=== PATIENT | male | born 1950 | race Caucasian/White ===

== ENCOUNTER → 2023-04-19 07:45 | Outpatient (BNVA) | payer OTHER, SELFPAY | PROVIDERS: Family Provider Internal Medicine Cardiovascular Disease; PCP Internal Medicine Cardiovascular Disease; Referring Provider Family Medicine; Visit Provider Specialist | DX: G25.0 Essential tremor | CPT/HCPCS: 99204; 99205 ==

== ENCOUNTER 2023-05-17 12:25 | Outpatient (CLI) | payer OTHER, SELFPAY ==
--- NOTE | 2023-05-17 13:00 | MR_ITS ---
WS: [id number] MRI HEAD WITHOUT CONTRAST TECHNIQUE: Sagittal T1, T2 axial, T2 axial FLAIR, axial and coronal T1 images, axial susceptibility w eighted imaging, axial diffusion weighted images, and coronal T2 images were obtained. CLINICAL INFORMATION: R25.1 - Tremor, unspecified COMPARISON: MRI 2018 FINDINGS: No evidence of restricted diffusion to suggest acute ischemia. Ventricular system and basal cisterns are patent. Advanced small vessel changes. Moderate parenchymal volume loss. Evidence of chronic infa rct with encephalomalacia and gliosis in the RIGHT frontal and parietal lobes and parasagittal occipi hermes lobe. Chronic lacunar infarcts in the RIGHT greater than LEFT cerebellum. Normal vascular flow vo ids at the skull base. No extra-axial fluid collections. Mild mucosal thickening in the paranasal sin uses and frontal sinuses. Mastoid air cells are well aerated. No hemosiderin on the susceptibly weighted images. Moderate symmetric atrophy temporal lobes and sonya ocampal formations. IMPRESSION: 1. No evidence of restricted diffusion to suggest acute ischemia. 2. Similar-appearing chronic infarcts with encephalomalacia and gliosis in the RIGHT frontal, RIGHT greater than LEFT parietal, and LEFT posterior temporal and parasagittal occipital lobes with encepha lomalacia and gliosis. 3. Chronic lacunar infarcts in the RIGHT greater than LEFT cerebellum. 4. No hemosiderin on susceptibility-weighted images.
== END 2023-05-17 12:26 | disposition home or self-care (01) ==
PROVIDERS: Family Provider Internal Medicine Cardiovascular Disease; PCP Internal Medicine Cardiovascular Disease; Visit Provider Specialist
DX: R25.1 Tremor, unspecified (principal); Z86.73 Personal history of transient ischemic attack (TIA), and cerebral infarction without residual deficits; G93.89 Other specified disorders of brain
CPT/HCPCS: 70551

== ENCOUNTER 2023-12-15 22:55 | Emergency (ER) | payer OTHER, SELFPAY ==
[2023-12-15 22:58] VITALS: BP 122/80; PULSE 53; RESP 18; TEMP 36.6; O2SAT 95; BMI 26.6
[2023-12-15 23:03] VITALS: BP 122/80; PULSE 54; RESP 16; O2SAT 96
--- NOTE | 2023-12-15 23:27 | CTR_ITS ---
PROCEDURE INFORMATION: Exam: CT Abdomen And Pelvis With Contrast Exam date and time: 12/16/2023 1:00 AM Age: 73 years old Clinical indication: Abdominal pain; Prior surgery; Surgery date: 6+ months; Surgery type: Gb; Additional info: Llq abd pain, n/v known hernia TECHNIQUE: Imaging protocol: Computed tomography of the abdomen and pelvis with contrast. Radiation optimization: All CT scans at this facility use at least one of these dose optimization techniques: automated exposure control; mA and/or kV adjustment per patient size (includes targeted exams where dose is matched to clinical indication); or iterative reconstruction. Contrast material: OMNI 350; Contrast volume: 100 ml; Contrast route: INTRAVENOUS (IV); COMPARISON: CT abdomen pelvis w con* [id number] 11/26/2017 11:55 AM RADIATION DOSE METRICS: Total DLP (mGy-cm): 456.7 FINDINGS: Diaphragm: Small residual hiatal hernia. Liver: Normal. No mass. Gallbladder and bile ducts: Status post cholecystectomy. Pancreas: Normal. No ductal dilation. Spleen: Normal. No splenomegaly. Adrenal glands: Normal. No mass. Kidneys and ureters: There are hypoattenuation cystic lesion seen within the kidneys bilaterally, largest seen on the left anteriorly measuring 3.5 cm. Stomach and bowel: Diverticula are seen scattered in the colon. There are no inflammatory changes present to suggest diverticulitis. Appendix: Status post appendectomy. Intraperitoneal space: Unremarkable. No free air. No significant fluid collection. Vasculature: Calcifications are seen in the abdominal aorta, iliac arteries and femoral arteries bilaterally. There is origin occlusion of the left superficial femoral artery. A stent is present within the left common iliac artery. Lymph nodes: Unremarkable. No enlarged lymph nodes. Urinary bladder: Unremarkable as visualized. Reproductive: Prostate gland is mildly prominent measuring 4.4 x 3.7 x 5.3 cm. Bones/joints: Severe loss of disc height and vacuum disc phenomenon is seen at L5-S1 compatible with degenerative disc disease. Soft tissues: There is left inguinal hernia that contains a knuckle of nonobstructed and non incarcerated small bowel. CT/CT abdomen pelvis w con* [id number] IMPRESSION: 1. 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 2. Left inguinal hernia containing a knuckle of nonobstructed and non incarcerated small bowel. 3. Diverticulosis 4. Small residual hiatal hernia 5. Simple bilateral renal cysts, the largest seen on the left measuring 3.5 cm. No further workup needed. COMMENTS: Consistent with the [employer]'s Incidental Findings Committee white paper (J Am Lauryn Radiol 2018): Any incidental renal lesion less than 1 cm or classified as too small to characterize, or any incidental cystic renal lesion characterized as simple-appearing, is likely benign. No follow-up imaging is recommended for these lesions per consensus recommendations based on imaging criteria.
[2023-12-15 23:30] VITALS: BP 124/70; PULSE 50; RESP 16; O2SAT 94
--- NOTE | 2023-12-15 23:32 | ED_ITS ---
HPI - Abdominal Pain 2 General: Chief Complaint: Abdominal Pain Stated Complaint: ABD PAIN/LEG PAIN Time Seen by Provider: 12/15/23 23:23 History of Present Illness: Patient presents to the ER by EMS with complaints of left lower quadrant abdominal pain radiating down his leg. Patient said this pain from his hernia region that he is going to have surgery on tomorrow but radiated down his leg to the point that he felt pain all the way down to his toes. Patient is never had pain like this before from his hernia. Patient does have a history of a blood clot with a stent in his lower extremity and is currently off of his Plavix for 8 days for the hernia surgery planned tomorrow. Review of Systems 2 General: Reports: 10 or more systems reviewed and unremarkable except in HPI and below Physical Exam 2 Const: COMMON NORMALS: no acute distress, average body habitus, patient oriented x3, no limitations, healthy appearing, alert and well nourished HENMT: COMMON NORMALS: normocephalic, atraumatic, hearing grossly normal bilaterally, external ears normal, Normal external nose present, moist oral mucous membranes and oropharynx normal HEAD & SCALP: normocephalic and atraumatic NOSE: Normal external nose present EXTERNAL EAR: Yes external ears normal Neck/C-Spine: COMMON NORMALS: no JVD Chest: COMMONS NORMALS: normal inspection of the chest and normal palpation of entire chest wall Resp: COMMON NORMALS: normal respiratory effort, No retractions, No use of accessory muscles and clear to auscultation bilaterally AUSCULTATION: clear to auscultation bilaterally Cardio: COMMON NORMALS: no JVD, regular rate, regular rhythm, S1 normal heart sound present, S2 normal heart sound present, No gallops present (Cardio), No clicks present (Cardio), No murmurs present (Cardio) and No rub (Cardio) R ATE: regular rate RHYTHM: regular rhythm HEART SOUNDS: S1 normal heart sound present and S2 normal heart sound present GI: COMMON NORMALS: Normal to inspection, nondistended, normoactive bowel sounds present, Soft to palpation, No hepatosplenomegaly present and no masses; negative for non-tender (Tender to palpate left lower quadrant) PALPATION: Y es Soft to palpation and Yes No hepatosplenomegaly present Extremity: NARRATIVE EXTREMITY EXAM: Bilateral lower extremities pink warm and dry with good pulses present. Neuro: COMMON NORMALS: patient oriented x3 SENSORIUM/ORIENTATION: Yes alert Course 2 Vital Signs: Vital signs: Vital Signs Temperature 98 F 12/15/23 22:58 Pulse Rate 63 12/16/23 02:00 Respiratory Rate 16 12/16/23 02:00 Blood Pressure 145/93 12/16/23 02:00 Pulse Oximetry 97 12/16/23 02:00 Oxygen Delivery Me thod Room Air 12/16/23 02:00 MDM - Abdominal Pain Medical Decision Making Lab work was obtained included CBC CMP and lipase all of which was essentially normal. Abdomen pelvis CT scan showed occlusion of the left superficial femoral artery, left inguinal hernia is nonobstructed and nonincarcerated, these results was discussed with the patient. Patient has surgery planned for the morning. Patient had his femoral stent placed down in [place], patient was unaware of what arteries were occluded then. Patient not want to do anything about this artery now because it is unknown where this is a new occlusion or and old occlusion. This was explained this is very high risk specially if this is new. Patient will go to [place] tomorrow for his hernia surgery and was told to immediately call his vascular surgeon and tell him that he has abdomen pelvis CT scan. This shows an occlusion and have him review the images. Differential Diagnosis Likely abdominal pain; Unlikely acute appendicitis, calculus of kidney, constipation, diverticulitis, endometriosis, gastroenteritis, pancreatitis or small bowel obstruction Medical Records I reviewed the patient's medical records. Lab Data I reviewed the patient's lab results. 12/15/23 23:57 12/15/23 23:57 Labs/Radiology: Radiology Impressions Abdomen/Pelvis CT 12/15/23 23:27 IMPRESSION: 1. 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 2. Left inguinal hernia containing a knuckle of nonobstructed and non incarcerated small bowel. 3. Diverticulosis 4. Small residual hiatal hernia 5. Simple bilateral renal cysts, the largest seen on the left measuring 3.5 cm. No further workup needed. COMMENTS: Consistent with the [employer]'s Incidental Findings Committee white paper (J Am Lauryn Radiol 2018): Any incidental renal lesion less than 1 cm or classified as too small to characterize, or any incidental cystic renal lesion characterized as simple-appearing, is likely benign. No follow-up imaging is recommended for these lesions per consensus recommendations based on imaging criteria. Laboratory Results WBC 6.75 10^3/uL (3.29-11.43) 12/15/23 23:57 RBC 5.22 10^6/uL (3.85-5.65) 12/15/23 23:57 Hgb 15.90 g/dL (11.27-16.99) 12/15/23 23:57 Hct 45.9 % (37-53) 12/15/23 23:57 MCV 87.9 fl (82-101) 12/15/23 23:57 MCH 30.5 pg (27-33) 12/15/23 23:57 MCHC 34.6 g/dL (30-55) 12/15/23 23:57 RDW 12.7 % (12.1-15.1) 12/15/23 23:57 Plt Count 152 10^3/cmm (157-399) L 12/15/23 23:57 MPV 9.6 fL (7.4-10.4) 12/15/23 23:57 Neut % (Auto) 63.4 % 12/15/23 23:57 Lymph % (Auto) 27.3 % 12/15/23 23:57 [place] % (Auto) 5.8 % 12/15/23 23:57 Eos % (Auto) 2.2 % 12/15/23 23:57 Baso % (Auto) 1.0 % 12/15/23 23:57 Neut # (Auto) 4.28 10^3/uL (1.8-7.7) 12/15/23 23:57 Lymph # (Auto) 1.8 10^3/uL (0.8-4.8) 12/15/23 23:57 [place] # (Auto) 0.4 10^3/uL (0.2-0.9) 12/15/23 23:57 Eos # (Auto) 0.2 10^3/uL (0.0-0.8) 12/15/23 23:57 Baso # (Auto) 0.1 10^3/uL (0.0-0.1) 12/15/23 23:57 Nucleated RBC % (auto) 0 % 12/15/23 23:57 Nucleated RBCs # 0.0 /100WBC 12/15/23 23:57 Sodium 138 mmol/L (136-145) 12/15/23 23:57 Potassium 4.4 mmol/L (3.5-5.1) 12/15/23 23:57 Chloride 106 mmol/L (98-107) 12/15/23 23:57 Carbon Dioxide 23 mmol/L (22-29) 12/15/23 23:57 Anion Gap 13.4 (5-19) 12/15/23 23:57 BUN 9 mg/dL (8-23) 12/15/23 23:57 Creatinine 0.8 mg/dL (0.7-1.2) 12/15/23 23:57 GFR Calculation Not Reportable 12/15/23 23:57 Glucose 106 mg/dL (65-115) 12/15/23 23:57 Calculated Osmolality 285 mOsm/kg (285-295) 12/15/23 23:57 Lactic Acid 1.4 mmol/L (0.5-2.2) 12/15/23 23:57 Calcium 9.5 mg/dL (8.5-10.5) 12/15/23 23:57 Total Bilirubin 0.4 mg/dL (0.15-1.2) 12/15/23 23:57 AST 9 U/L (0-40) 12/15/23 23:57 ALT 8 U/L (0-41) 12/15/23 23:57 Alkaline Phosphatase 106 U/L (40-130) 12/15/23 23:57 Total Protein 6.2 g/dL (6.6-8.7) L 12/15/23 23:57 Albumin 3.8 g/dL (3.5-5.2) 12/15/23 23:57 Globulin 2.4 g/dL (1.3-4.6) 12/15/23 23:57 All radiology interpretation(s) finalized by discharge Discharge Plan Discharge Patient Disposition: Home Clinical Impression: Abdominal pain, acute, left lower quadrant, Hernia, inguinal, left, Superficial femoral artery occlusion Condition: Stable Prescriptions: No Action mirtazapine 45 mg tablet 45 mg PO DAILY atorvastatin 40 mg tablet 40 mg PO DAILY valsartan 80 mg tablet 80 mg PO DAILY clopidogrel 75 mg tablet 75 mg PO DAILY primidone 50 mg tablet 50 mg PO BID 30 Days Qty: 60 5RF Rx Instructions: Take 1 in the evening for 7 days and then twice a day for tremor Discharge Orders: Discharge ED (Routine); Ordered 12/16/23 Ordered By: Dusty Hilliard Patient Instructions: Abdominal Pain (ED) Activity Restrictions/Additional Instructions: Your lab work in ER was unremarkable, your imaging showed your hernia is not incarcerated not strangulated. It also showed you have a superficial femoral artery occlusion on your left side. It is unknown if this is acute or chronic. We do not have any images to compare this to. You do have a femoral artery stent and a known blockage somewhere by your recall. Please call your vascular surgeon immediately in the morning and alerted him of this blockage. This could be life-threatening or life altering if this is new. There could be no treatment for it if this is old. But may require treatment if this is new. Coding Level of Care Code ED Disaster Recovery Analyst for Julian Golden
[2023-12-16] VITALS (8 sets, daily range): BP systolic 102–172; BP diastolic 73–97; PULSE 50–83; RESP 16; O2SAT 92–99
[2023-12-16 00:03] LABS: Basophils # 0.1 10^3/uL (0.0-0.1); Eosinophils # 0.2 10^3/uL (0.0-0.8); Eosinophils % 2.2 %; Hematocrit 45.9 % (37-53); Lymphocytes # 1.8 10^3/uL (0.8-4.8); Lymphocytes % 27.3 %; Mean Corpuscular HGB Conc 34.6 g/dL (30-55); Mean Corpuscular Hemoglobin 30.5 pg (27-33); Mean Corpuscular Volume 87.9 fl (82-101); Mean Platelet Volume 9.6 fL (7.4-10.4); Monocytes # 0.4 10^3/uL (0.2-0.9); Monocytes % 5.8 %; Neutrophils # 4.28 10^3/uL (1.8-7.7); Neutrophils % 63.4 %; Nucleated Red Blood Cells % 0 %; Platelet Count 152 10^3/cmm (157-399); Red Blood Count 5.22 10^6/uL (3.85-5.65); Red Cell Distribution Width 12.7 % (12.1-15.1); White Blood Count 6.75 10^3/uL (3.29-11.43)
[2023-12-16 00:26] LABS: Alanine Aminotransferase 8 U/L (0-41); Albumin Level 3.8 g/dL (3.5-5.2); Alkaline Phosphatase 106 U/L (40-130); Anion Gap 13.4 (5-19); Aspartate Amino Transferase 9 U/L (0-40); Blood Urea Nitrogen 9 mg/dL (8-23); Calcium 9.5 mg/dL (8.5-10.5); Carbon Dioxide 23 mmol/L (22-29); Chloride 106 mmol/L (98-107); Creatinine Clr Calc Pharmacy 89.9381; Globulin 2.4 g/dL (1.3-4.6); Glucose 106 mg/dL (65-115); Osmolality Calculated 285 mOsm/kg (285-295); Potassium 4.4 mmol/L (3.5-5.1); Sodium 138 mmol/L (136-145); Total Bilirubin 0.4 mg/dL (0.15-1.2); Total Protein 6.2 g/dL (6.6-8.7)
[2023-12-16 00:27] LABS: Lactic Sepsis W/Reflex 1.4 mmol/L (0.5-2.2)
[2023-12-16] MEDS: iohexol 350 mg/mL 500 mL Btl (per mL) IV (01:03)
== END 2023-12-16 04:22 | disposition home or self-care (01) ==
PROVIDERS: Emergency Provider Emergency Medicine
DX: R10.32 Left lower quadrant pain (principal); K40.90 Unilateral inguinal hernia, without obstruction or gangrene, not specified as recurrent; I77.1 Stricture of artery; Z79.02 Long term (current) use of antithrombotics/antiplatelets
CPT/HCPCS: 74177; 80053; 83605; 85025; 99285; Q9967

== ENCOUNTER 2023-12-19 09:06 | Emergency (ER) | payer OTHER, SELFPAY ==
[2023-12-19 09:09] VITALS: BP 187/91; PULSE 63; RESP 16; TEMP 37.1; O2SAT 97; BMI 23.6
--- NOTE | 2023-12-19 09:30 | USR_ITS ---
PROCEDURE INFORMATION: Exam: US Duplex Left Lower Extremity Arteries Or Arterial Bypass Grafts Exam date and time: 12/19/2023 10:10 AM Age: 73 years old Clinical indication: Pain; Leg, lower; Left; Prior surgery; Surgery date: 1-6 months; Surgery type: Stents in illiacs; Additional info: Coolness, pain; HX of stent/occulsion TECHNIQUE: Imaging protocol: Left Real-time duplex scan of the arteries or arterial bypass grafts of the left lower extremity with 2-D tompkins scale, color Doppler flow and spectral waveform analysis. Images documented and saved. COMPARISON: CT abdomen pelvis w con* [id number] 12/16/2023 1:00 AM FINDINGS: Left common femoral artery: No occlusion or significant stenosis. Normal waveform. Left superficial femoral artery: Occluded. Left popliteal artery: Occluded. Left calf/foot arteries: Minimal blood flow. US/CV arterial duplex [facility] [id number] IMPRESSION: Extensive occlusion beginning in the left SFA.
--- NOTE | 2023-12-19 09:30 | ED_ITS ---
HPI - Extremity Problem 2 General: Chief complaint: Extremity Problem,Nontraumatic Stated complaint: Left lower leg pain Time Seen by Provider: 12/19/23 09:10 Source: patient and EMS Mode of arrival: EMS Limitations: no limitations History of Present Illness: Patient is a nice 73-year-old male who presents to ED today with a complaint of left lower leg pain over the past 2 weeks or so. Patient states he does have a history of an arterial occlusion to the leg and does have a stent to his left common iliac artery. He states that was placed approximately 2 to 3 years ago at [facility] however after contacting [facility], they are stating they do not have any records of this. Reportedly done by a Dr. Correa who is part of an outpatient vascular surgical group. Patient states his leg feels cold and is having significant discomfort even at rest. He states pain is significantly worse with walking and states his leg will turn blue/purple when he gets up and walks. Patient was seen here in our ED on 12/[address] scan of his abdomen and pelvis for complaints of a hernia. CT scan at the time showed a left superficial femoral artery occlusion. Pulses were reportedly palpable at that time and extremities were pink and warm. Patient states he had a hernia repair surgery scheduled for the following day which he underwent in [place] on 12/15. MD Complaint: extremity pain and cold extremity Onset (ago): week(s) (2 weeks ago) Pain Consistency: constant and other (worsening) Location: left and lower extremity Radiation: none Relieving factors: nothing Exacerbating factors: walking Associated symptoms: Deny chest pain or fever(s) Context: recent surgery/procedure and other (hx of arterial occlusion with stent) Review of Systems 2 Const: Denies: fever(s), chills, body aches, fatigue or malaise Card: Denies: chest pain Resp: Denies: dyspnea GI: Reports: abdominal pain (states abdomen is healing well from recent hernia surgery); Denies: nausea, vomiting, diarrhea or change in bowel habits : Denies: flank pain, difficulty urinating, dysuria, urinary frequency, urinary urgency or urinary hesitancy Musc: Reports: extremity pain; Denies: neck pain, back pain, extremity swelling, joint pain, joint swelling or limited range of motion Neuro: Reports: sensory changes; Denies: headache(s) or weakness in extremities Physical Exam 2 Const: COMMON NORMALS: no acute distress, average body habitus, patient oriented x3, no limitations, alert and well nourished GENERAL APPEARANCE: c ooperative ORIENTATION/CONSCIOUSNESS: Yes awake, Yes oriented to person, Yes oriented to place and Yes oriented to time Resp: COMMON NORMALS: normal respiratory effort and clear to auscultation bilaterally AUSCULTATION: clear to auscultation bilaterally Cardio: COMMON NORMALS: regular rate and regular rhythm RATE: regular rate RHYTHM: regular rhythm Extremity: COMMON NORMALS: full ROM, no joint enlargement, no calf tenderness and no pedal edema GENERAL: Yes normal exam except as noted OTHER: L LE is cooler to touch than R; there is delayed cap refill, pain at rest, and I cannot palpate DP/PT pulses Neuro: COMMON NORMALS: patient oriented x3, moves all extremities and no focal motor deficits SENSORIUM/ORIENTATION: Yes alert, Yes oriented to person, Yes oriented to place and Yes oriented to time Course 2 Consultations: Consultation #1: [facility], will have vascular consult upon arrival Vital Signs: Vital signs: Vital Signs Temperature 98.7 F 12/19/23 09:09 Pulse Rate 61 12/19/23 12:18 Respiratory Rate 16 12/19/23 09:09 Blood Pressure 175/81 12/19/23 12:18 Pulse Oximetry 99 12/19/23 12:18 Oxygen Delivery Me thod Room Air 12/19/23 09:09 MDM - Extremity (Nontraumatic) Medical Decision Making Patient is a nice 73-year-old male here for left lower extremity pain and coolness. On exam he has a cool foot, delayed cap refill, and nonpalpable DP/PT pulses. Arterial ultrasound showing an occluded left superficial femoral artery as well as an occluded popliteal artery. Per dairy technologist he also did not get flow in his peroneal and posterior tibial arteries. He states there was trickle flow to his dorsalis pedis with an MARCIE of 0.23. Patient will require transfer to vascular surgery for limb ischemia. He has been started on heparin. I have spoken to [facility] and he will be a direct admit there with vascular consult upon arrival. Medical Records I reviewed the patient's medical records. Lab Data I reviewed the patient's lab results. 12/19/23 10:03 12/19/23 10:03 Radiology Impressions Duplex Scan Lower Extremity Artery 12/19/23 09:30 IMPRESSION: Extensive occlusion beginning in the left SFA. Laboratory Results WBC 6.19 10^3/uL (3.29-11.43) 12/19/23 10:03 RBC 5.17 10^6/uL (3.85-5.65) 12/19/23 10:03 Hgb 15.40 g/dL (11.27-16.99) 12/19/23 10:03 Hct 46.1 % (37-53) 12/19/23 10:03 MCV 89.2 fl (82-101) 12/19/23 10:03 MCH 29.8 pg (27-33) 12/19/23 10:03 MCHC 33.4 g/dL (30-55) 12/19/23 10:03 RDW 12.7 % (12.1-15.1) 12/19/23 10:03 Plt Count 146 10^3/cmm (157-399) L 12/19/23 10:03 MPV 9.6 fL (7.4-10.4) 12/19/23 10:03 Neut % (Auto) 74.0 % 12/19/23 10:03 Lymph % (Auto) 18.1 % 12/19/23 10:03 [place] % (Auto) 4.7 % 12/19/23 10:03 Eos % (Auto) 2.1 % 12/19/23 10:03 Baso % (Auto) 0.8 % 12/19/23 10:03 Neut # (Auto) 4.58 10^3/uL (1.8-7.7) 12/19/23 10:03 Lymph # (Auto) 1.1 10^3/uL (0.8-4.8) 12/19/23 10:03 [place] # (Auto) 0.3 10^3/uL (0.2-0.9) 12/19/23 10:03 Eos # (Auto) 0.1 10^3/uL (0.0-0.8) 12/19/23 10:03 Baso # (Auto) 0.1 10^3/uL (0.0-0.1) 12/19/23 10:03 Nucleated RBC % (auto) 0 % 12/19/23 10:03 Nucleated RBCs # 0.0 /100WBC 12/19/23 10:03 Sodium 137 mmol/L (136-145) 12/19/23 10:03 Potassium 4.4 mmol/L (3.5-5.1) 12/19/23 10:03 Chloride 107 mmol/L (98-107) 12/19/23 10:03 Carbon Dioxide 23 mmol/L (22-29) 12/19/23 10:03 Anion Gap 11.4 (5-19) 12/19/23 10:03 BUN 6 mg/dL (8-23) L 12/19/23 10:03 Creatinine 0.8 mg/dL (0.7-1.2) 12/19/23 10:03 GFR Calculation Not Reportable 12/19/23 10:03 Glucose 90 mg/dL (65-115) 12/19/23 10:03 Calculated Osmolality 281 mOsm/kg (285-295) L 12/19/23 10:03 Calcium 9.2 mg/dL (8.5-10.5) 12/19/23 10:03 Total Bilirubin 0.5 mg/dL (0.15-1.2) 12/19/23 10:03 AST 9 U/L (0-40) 12/19/23 10:03 ALT 7 U/L (0-41) 12/19/23 10:03 Alkaline Phosphatase 115 U/L (40-130) 12/19/23 10:03 Total Protein 6.1 g/dL (6.6-8.7) L 12/19/23 10:03 Albumin 3.6 g/dL (3.5-5.2) 12/19/23 10:03 Globulin 2.5 g/dL (1.3-4.6) 12/19/23 10:03 All radiology interpretation(s) finalized by discharge Discharge Plan Discharge Patient Disposition: Xfer Short-Term Hosp Clinical Impression: Acute lower extremity ischemia Condition: Stable Coding Level of Care Code ED Computing Consultant for Julian Golden
[2023-12-19 10:15] LABS: Basophils # 0.1 10^3/uL (0.0-0.1); Basophils % 0.8 %; Eosinophils # 0.1 10^3/uL (0.0-0.8); Eosinophils % 2.1 %; Hematocrit 46.1 % (37-53); Lymphocytes # 1.1 10^3/uL (0.8-4.8); Lymphocytes % 18.1 %; Mean Corpuscular HGB Conc 33.4 g/dL (30-55); Mean Corpuscular Hemoglobin 29.8 pg (27-33); Mean Corpuscular Volume 89.2 fl (82-101); Mean Platelet Volume 9.6 fL (7.4-10.4); Monocytes # 0.3 10^3/uL (0.2-0.9); Monocytes % 4.7 %; Neutrophils # 4.58 10^3/uL (1.8-7.7); Nucleated Red Blood Cells % 0 %; Platelet Count 146 10^3/cmm (157-399); Red Blood Count 5.17 10^6/uL (3.85-5.65); Red Cell Distribution Width 12.7 % (12.1-15.1); White Blood Count 6.19 10^3/uL (3.29-11.43)
[2023-12-19 10:37] LABS: Alanine Aminotransferase 7 U/L (0-41); Albumin Level 3.6 g/dL (3.5-5.2); Alkaline Phosphatase 115 U/L (40-130); Anion Gap 11.4 (5-19); Aspartate Amino Transferase 9 U/L (0-40); Blood Urea Nitrogen 6 mg/dL (8-23); Calcium 9.2 mg/dL (8.5-10.5); Carbon Dioxide 23 mmol/L (22-29); Chloride 107 mmol/L (98-107); Creatinine Clr Calc Pharmacy 85.5911; Globulin 2.5 g/dL (1.3-4.6); Glucose 90 mg/dL (65-115); Osmolality Calculated 281 mOsm/kg (285-295); Potassium 4.4 mmol/L (3.5-5.1); Sodium 137 mmol/L (136-145); Total Bilirubin 0.5 mg/dL (0.15-1.2); Total Protein 6.1 g/dL (6.6-8.7)
[2023-12-19] MEDS: heparin 5,000 unit/mL INJ 1 mL IV (11:10)
[2023-12-19 11:17] VITALS: BP 169/92; PULSE 91; O2SAT 96
[2023-12-19] MEDS: heparin drip 25,000 UNIT/500 ML PREMIX 20 UNIT IV (11:17)
[2023-12-19 12:00] VITALS: BP 169/92; O2SAT 100
[2023-12-19 12:18] VITALS: BP 175/81; PULSE 61; O2SAT 99
[2023-12-19 13:55] VITALS: BP 127/74; O2SAT 96
== END 2023-12-19 17:19 | disposition short-term general hospital (02) ==
PROVIDERS: Emergency Provider Physician Assistant
DX: I99.8 Other disorder of circulatory system (principal)
CPT/HCPCS: 36415; 80053; 85025; 93926; 96374; 99284; J1644

== ENCOUNTER 2024-08-02 03:25 | Emergency (ER) | payer OTHER, SELFPAY ==
[2024-08-02] VITALS (8 sets, daily range): BP systolic 121–146; BP diastolic 70–82; PULSE 70–94; RESP 14–24; TEMP 37.1; O2SAT 90–97; BMI 23.6
--- NOTE | 2024-08-02 03:37 | XRR_ITS ---
PROCEDURE INFORMATION: Exam: XR Chest Exam date and time: 08/02/2024 3:51 AM Age: 74 years old Clinical indication: Shortness of breath; Prior surgery; Surgery date: <1 month; Surgery type: Pacemaker; Additional info: Weakness TECHNIQUE: Imaging protocol: Radiologic exam of the chest. Views: 1 view. COMPARISON: CR XR chest 1V [id number] 03/03/2018 3:08 PM FINDINGS: Tubes, catheters and devices: A cardiac pacing device is again seen projecting over the left chest. Electronic device projects over the left chest. Lungs: Patchy airspace opacity noted in the left lower lung. The right lung is clear. Pleural spaces: Unremarkable. No pleural effusion. No pneumothorax. Heart/Mediastinum: Stable cardiomediastinal silhouette. Bones/joints: Unremarkable. XR/XR chest 1V portable [id number] IMPRESSION: Patchy airspace opacity in the left lower lung, which may represent atelectasis or pneumonia in the adequate clinical setting.
--- NOTE | 2024-08-02 03:38 | ECG_ITS ---
[employer] [facility] Test Date: 2024-08-02 Pat Name: Moe Patel Department: Room: Gender: Male Staffing Recruiter: : 1950 Requested By: Ashia Brooks Order Number: [id number] Laird MD: Amos Balderas M.D. Measurements Intervals [place] Rate: 87 P: 87 MT: 149 QRS: 40 QRSD: 114 T: 57 QT: 340 QTc: 409 Interpretive Statements SINUS RHYTHM WITH OCCASIONAL ECTOPIC PREMATURE COMPLEXES MODERATE INTRAVENTRICULAR CONDUCTION DELAY [110+ ms QRS DURATION] Compared to ECG 03/03/2018 14:51:18 Sinus bradycardia no longer present Electronically Signed On 08-03-2024 18:35:20 CONCRETE POURING SUPERVISOR by Amos Balderas M.D. [email or web address]
--- NOTE | 2024-08-02 03:56 | W.ED.WEAKNES ---
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 He says he has not been sleeping. He says he is felt short of breath and weak for about 5 days now. Pacemaker was placed fairly recently. He reports fevers. No focal motor deficits. No chest pain. No abdominal pain. No nausea or vomiting. Review of Systems Narrative: Constitutional symptoms: Negative except as documented in HPI. Skin symptoms: Negative except as documented in HPI. Eye symptoms: Negative except as documented in HPI. ENMT symptoms: Negative except as documented in HPI. Respiratory symptoms: Negative except as documented in HPI. Cardiovascular symptoms: Negative except as documented in HPI. Gastrointestinal symptoms: Negative except as documented in HPI. Genitourinary symptoms: Negative except as documented in HPI. Musculoskeletal symptoms: Negative except as documented in HPI. Neurologic symptoms: Negative except as documented in HPI. Psychiatric symptoms: Negative except as documented in HPI. Endocrine symptoms: Negative except as documented in HPI. Physical Exam Narrative: EXAM NARRATIVE: General: Alert, no acute distress. Skin: Warm, dry. Head: Normocephalic, atraumatic. Neck: Supple, trachea midline. Eye: Extraocular movements are intact. Ears, nose, mouth and throat: mucosa moist. Cardiovascular: Regular, Normal peripheral perfusion. Respiratory: Lungs are clear to auscultation, respirations are non-labored, breath sounds are equal, Symmetrical chest wall expansion. Gastrointestinal: Soft, Nontender, Non distended Musculoskeletal: Normal ROM, no deformity. Neurological: Alert and oriented, No focal neurological deficit observed. Psychiatric: Cooperative, appropriate mood & affect. Course Vital Signs: Vital signs: Vital Signs Temperature 98.7 F 08/02/24 03:37 Pulse Rate 74 08/02/24 06:06 Respiratory Rate 20 H 08/02/24 06:06 Blood Pressure 125/71 08/02/24 06:06 Pulse Oximetry 95 08/02/24 06:06 Oxygen Delivery Me thod Room Air 08/02/24 04:00 MDM - Weakness Medical Decision Making Medical decision making: Differential diagnosis for patient presenting with generalized weakness including but not limited to and based on the above HPI, review of systems and physical exam: Sepsis. Dehydration. Renal failure. Electrolyte abnormalities. Anemia. Congestive heart failure. Hypotension. Coronary syndrome. Hepatitis. Cirrhosis. Infections such as pneumonia, urinary tract infection, [place] illness, Cellulitis, Viral infections including influenza and Covid-19. EKG: Time 3:33 AM. Rate 87. Occasional PACs. Normal sinus rhythm, No ST-T changes, normal OK & QRS intervals, This was reviewed and interpreted by myself the ER physician at 3:37 AM Workup: labwork and lab/exam driven imaging ordered to evaluate, rule in and rule out above pathologies. Lab Review: Laboratory results were reviewed and interpreted by myself the emergency room physician. I reviewed the patient's medical record. Reexamination: Lab Data 08/02/24 04:17 08/02/24 04:17 Radiology Impressions Chest X-Ray 08/02/24 03:37 IMPRESSION: Patchy airspace opacity in the left lower lung, which may represent atelectasis or pneumonia in the adequate clinical setting. Chest CT 08/02/24 05:01 IMPRESSION: Rounded opacity at the right lung base. Three-month follow-up chest CT recommended. COMMENTS: The presence of pulmonary emphysema on CT is an independent risk factor for lung cancer. In the absence of a history or active diagnosis of lung cancer, it is recommended that this patient with emphysema be evaluated for enrollment in a low dose CT lung cancer screening program. Laboratory Results WBC 4.64 10^3/uL (3.29-11.43) 08/02/24 04:17 RBC 4.87 10^6/uL (3.85-5.65) 08/02/24 04:17 Hgb 14.40 g/dL (11.27-16.99) 08/02/24 04:17 Hct 42.8 % (37-53) 08/02/24 04:17 MCV 87.9 fl (82-101) 08/02/24 04:17 MCH 29.6 pg (27-33) 08/02/24 04:17 MCHC 33.6 g/dL (30-55) 08/02/24 04:17 RDW 13.0 % (12.1-15.1) 08/02/24 04:17 Plt Count 134 10^3/cmm (157-399) L 08/02/24 04:17 MPV 9.1 fL (7.4-10.4) 08/02/24 04:17 Neut % (Auto) 81.9 % 08/02/24 04:17 Lymph % (Auto) 10.8 % 08/02/24 04:17 [place] % (Auto) 6.3 % 08/02/24 04:17 Eos % (Auto) 0.4 % 08/02/24 04:17 Baso % (Auto) 0.4 % 08/02/24 04:17 Neut # (Auto) 3.80 10^3/uL (1.8-7.7) 08/02/24 04:17 Lymph # (Auto) 0.5 10^3/uL (0.8-4.8) L 08/02/24 04:17 [place] # (Auto) 0.3 10^3/uL (0.2-0.9) 08/02/24 04:17 Eos # (Auto) 0.0 10^3/uL (0.0-0.8) 08/02/24 04:17 Baso # (Auto) 0.0 10^3/uL (0.0-0.1) 08/02/24 04:17 Nucleated RBC % (auto) 0 % 08/02/24 04:17 Nucleated RBCs # 0.0 /100WBC 08/02/24 04:17 Sodium 135 mmol/L (136-145) L 08/02/24 04:17 Potassium 3.7 mmol/L (3.5-5.1) 08/02/24 04:17 Chloride 101 mmol/L (98-107) 08/02/24 04:17 Carbon Dioxide 22 mmol/L (22-29) 08/02/24 04:17 Anion Gap 15.7 (5-19) 08/02/24 04:17 BUN 12 mg/dL (8-23) 08/02/24 04:17 Creatinine 0.8 mg/dL (0.7-1.2) 08/02/24 04:17 GFR Calculation Not Reportable 08/02/24 04:17 Glucose 108 mg/dL (65-115) 08/02/24 04:17 Calculated Osmolality 280 mOsm/kg (285-295) L 08/02/24 04:17 Lactic Acid 1.7 mmol/L (0.5-2.2) 08/02/24 04:17 Calcium 8.9 mg/dL (8.5-10.5) 08/02/24 04:17 Total Bilirubin 0.4 mg/dL (0.15-1.2) 08/02/24 04:17 AST 10 U/L (0-40) 08/02/24 04:17 ALT 6 U/L (0-41) 08/02/24 04:17 Alkaline Phosphatase 110 U/L (40-130) 08/02/24 04:17 Troponin T Baseline 18 ng/L (0-15) H 08/02/24 04:17 Troponin T 120 Minute 18.26 ng/L (0-15) H 08/02/24 06:12 Delta Troponin T 0.26 ABS# (0-10) 08/02/24 06:12 NT-Pro-B Natriuret Pep 232 pg/mL (0-125) H 08/02/24 04:17 Total Protein 6.1 g/dL (6.6-8.7) L 08/02/24 04:17 Albumin 3.7 g/dL (3.5-5.2) 08/02/24 04:17 Globulin 2.4 g/dL (1.3-4.6) 08/02/24 04:17 Urine Color Dark yellow (Yellow) A 08/02/24 06:44 Urine Appearance Clear (CLEAR) 08/02/24 06:44 Urine pH 5.5 (5-7) 08/02/24 06:44 Ur Specific [place] 1.026 (1.005-1.030) 08/02/24 06:44 Urine Protein Trace (Negative) A 08/02/24 06:44 Urine Glucose (UA) Negative (Normal) 08/02/24 06:44 Urine Ketones Negative (Negative) 08/02/24 06:44 Urine Blood Negative (Negative) 08/02/24 06:44 Urine Nitrate Negative (Negative) 08/02/24 06:44 Urine Bilirubin Negative (Negative) 08/02/24 06:44 Urine Urobilinogen 1.0 mg/dL (Negative) 08/02/24 06:44 Ur Leukocyte Esterase Negative (Negative) 08/02/24 06:44 Amorphous Sediment Not Reportable 08/02/24 06:44 Coronavirus (PCR) Negative (Negative) 08/02/24 04:17 Influenza A (PCR) Negative (Negative) 08/02/24 04:17 Influenza Type B (PCR) Negative (Negative) 08/02/24 04:17 RSV (PCR) Positive (Negative) 08/02/24 04:17 All radiology interpretation(s) finalized by discharge Discharge Plan Discharge Patient Disposition: Home Clinical Impression: RSV bronchiolitis, Lung nodule Condition: Stable Prescriptions: No Action mirtazapine 45 mg tablet 45 mg PO DAILY atorvastatin 40 mg tablet 40 mg PO DAILY valsartan 80 mg tablet 80 mg PO DAILY clopidogrel 75 mg tablet 75 mg PO DAILY Discharge Orders: Discharge ED (Routine); Ordered 08/02/24 Ordered By: Kelly Copeland Patient Instructions: Pulmonary Nodules (ED), Opioid Safety, Pain Management, Respiratory Syncytial Virus (RSV) Coding Level of Care Code ED Pigment Making Supervisor for g Fwd Related Data Home Medications Medication Instructions Recorded Confirmed atorvastatin 40 mg tablet 40 mg PO DAILY 04/19/23 12/19/23 clopidogrel 75 mg tablet 75 mg PO DAILY 04/19/23 12/19/23 mirtazapine 45 mg tablet 45 mg PO DAILY 04/19/23 12/19/23 valsartan 80 mg tablet 80 mg PO DAILY 04/19/23 12/19/23 Allergies Allergy/AdvReac Type Severity Reaction Status Date / Time No Known Allergies Allergy Verified 08/02/24 03:41 Documented by User: Kelly Copeland MD 08/02/24 07:20 HPI - Weakness General: Chief complaint: Weakness Stated complaint: WEAKNESS Time Seen by Provider: 08/02/24 03:27 Course Reevaluation(s): Reevaluation #1: Pt signed out to f/u on repeat trop and CT. pt p/w viral URI symptoms, cough sob chills found to have RSV bronchiolitis. work up demonstrates trop stable x 2 , ekg non ischemic, CT shows poss pulm nodule otherwise no PNA, pt reassessed , he feels improved, lungs ctabl, stable VS, pt comfortable going home. Disc results including incidental finding of pulm nodule that will require outpt f/u. pt v/u, stable for dc Vital Signs: Vital signs: Vital Signs Temperature 98.7 F 08/02/24 03:37 Pulse Rate 74 08/02/24 06:06 Respiratory Rate 20 H 08/02/24 06:06 Blood Pressure 125/71 08/02/24 06:06 Pulse Oximetry 95 08/02/24 06:06 Oxygen Delivery Me thod Room Air 08/02/24 04:00 MDM - Weakness Lab Data 08/02/24 04:17 08/02/24 04:17 Radiology Impressions Chest X-Ray 08/02/24 03:37 IMPRESSION: Patchy airspace opacity in the left lower lung, which may represent atelectasis or pneumonia in the adequate clinical setting. Chest CT 08/02/24 05:01 IMPRESSION: Rounded opacity at the right lung base. Three-month follow-up chest CT recommended. COMMENTS: The presence of pulmonary emphysema on CT is an independent risk factor for lung cancer. In the absence of a history or active diagnosis of lung cancer, it is recommended that this patient with emphysema be evaluated for enrollment in a low dose CT lung cancer screening program. Laboratory Results WBC 4.64 10^3/uL (3.29-11.43) 08/02/24 04:17 RBC 4.87 10^6/uL (3.85-5.65) 08/02/24 04:17 Hgb 14.40 g/dL (11.27-16.99) 08/02/24 04:17 Hct 42.8 % (37-53) 08/02/24 04:17 MCV 87.9 fl (82-101) 08/02/24 04:17 MCH 29.6 pg (27-33) 08/02/24 04:17 MCHC 33.6 g/dL (30-55) 08/02/24 04:17 RDW 13.0 % (12.1-15.1) 08/02/24 04:17 Plt Count 134 10^3/cmm (157-399) L 08/02/24 04:17 MPV 9.1 fL (7.4-10.4) 08/02/24 04:17 Neut % (Auto) 81.9 % 08/02/24 04:17 Lymph % (Auto) 10.8 % 08/02/24 04:17 [place] % (Auto) 6.3 % 08/02/24 04:17 Eos % (Auto) 0.4 % 08/02/24 04:17 Baso % (Auto) 0.4 % 08/02/24 04:17 Neut # (Auto) 3.80 10^3/uL (1.8-7.7) 08/02/24 04:17 Lymph # (Auto) 0.5 10^3/uL (0.8-4.8) L 08/02/24 04:17 [place] # (Auto) 0.3 10^3/uL (0.2-0.9) 08/02/24 04:17 Eos # (Auto) 0.0 10^3/uL (0.0-0.8) 08/02/24 04:17 Baso # (Auto) 0.0 10^3/uL (0.0-0.1) 08/02/24 04:17 Nucleated RBC % (auto) 0 % 08/02/24 04:17 Nucleated RBCs # 0.0 /100WBC 08/02/24 04:17 Sodium 135 mmol/L (136-145) L 08/02/24 04:17 Potassium 3.7 mmol/L (3.5-5.1) 08/02/24 04:17 Chloride 101 mmol/L (98-107) 08/02/24 04:17 Carbon Dioxide 22 mmol/L (22-29) 08/02/24 04:17 Anion Gap 15.7 (5-19) 08/02/24 04:17 BUN 12 mg/dL (8-23) 08/02/24 04:17 Creatinine 0.8 mg/dL (0.7-1.2) 08/02/24 04:17 GFR Calculation Not Reportable 08/02/24 04:17 Glucose 108 mg/dL (65-115) 08/02/24 04:17 Calculated Osmolality 280 mOsm/kg (285-295) L 08/02/24 04:17 Lactic Acid 1.7 mmol/L (0.5-2.2) 08/02/24 04:17 Calcium 8.9 mg/dL (8.5-10.5) 08/02/24 04:17 Total Bilirubin 0.4 mg/dL (0.15-1.2) 08/02/24 04:17 AST 10 U/L (0-40) 08/02/24 04:17 ALT 6 U/L (0-41) 08/02/24 04:17 Alkaline Phosphatase 110 U/L (40-130) 08/02/24 04:17 Troponin T Baseline 18 ng/L (0-15) H 08/02/24 04:17 Troponin T 120 Minute 18.26 ng/L (0-15) H 08/02/24 06:12 Delta Troponin T 0.26 ABS# (0-10) 08/02/24 06:12 NT-Pro-B Natriuret Pep 232 pg/mL (0-125) H 08/02/24 04:17 Total Protein 6.1 g/dL (6.6-8.7) L 08/02/24 04:17 Albumin 3.7 g/dL (3.5-5.2) 08/02/24 04:17 Globulin 2.4 g/dL (1.3-4.6) 08/02/24 04:17 Urine Color Dark yellow (Yellow) A 08/02/24 06:44 Urine Appearance Clear (CLEAR) 08/02/24 06:44 Urine pH 5.5 (5-7) 08/02/24 06:44 Ur Specific [place] 1.026 (1.005-1.030) 08/02/24 06:44 Urine Protein Trace (Negative) A 08/02/24 06:44 Urine Glucose (UA) Negative (Normal) 08/02/24 06:44 Urine Ketones Negative (Negative) 08/02/24 06:44 Urine Blood Negative (Negative) 08/02/24 06:44 Urine Nitrate Negative (Negative) 08/02/24 06:44 Urine Bilirubin Negative (Negative) 08/02/24 06:44 Urine Urobilinogen 1.0 mg/dL (Negative) 08/02/24 06:44 Ur Leukocyte Esterase Negative (Negative) 08/02/24 06:44 Amorphous Sediment Not Reportable 08/02/24 06:44 Coronavirus (PCR) Negative (Negative) 08/02/24 04:17 Influenza A (PCR) Negative (Negative) 08/02/24 04:17 Influenza Type B (PCR) Negative (Negative) 08/02/24 04:17 RSV (PCR) Positive (Negative) 08/02/24 04:17 Discharge Plan Discharge Patient Disposition: Home Clinical Impression: RSV bronchiolitis, Lung nodule Condition: Stable Prescriptions: No Action mirtazapine 45 mg tablet 45 mg PO DAILY atorvastatin 40 mg tablet 40 mg PO DAILY valsartan 80 mg tablet 80 mg PO DAILY clopidogrel 75 mg tablet 75 mg PO DAILY Discharge Orders: Discharge ED (Routine); Ordered 08/02/24 Ordered By: Kelly Copeland Patient Instructions: Pulmonary Nodules (ED), Opioid Safety, Pain Management, Respiratory Syncytial Virus (RSV) Coding Level of Care Code ED Pigment Making Supervisor for Chg Fwd Related Data Home Medications Medication Instructions Recorded Confirmed atorvastatin 40 mg tablet 40 mg PO DAILY 04/19/23 12/19/23 clopidogrel 75 mg tablet 75 mg PO DAILY 04/19/23 12/19/23 mirtazapine 45 mg tablet 45 mg PO DAILY 04/19/23 12/19/23 valsartan 80 mg tablet 80 mg PO DAILY 04/19/23 12/19/23 Allergies Allergy/AdvReac Type Severity Reaction Status Date / Time No Known Allergies Allergy Verified 08/02/24 03:41
[2024-08-02 04:26] LABS: Basophils % 0.4 %; Eosinophils % 0.4 %; Hematocrit 42.8 % (37-53); Lymphocytes # 0.5 10^3/uL (0.8-4.8); Lymphocytes % 10.8 %; Mean Corpuscular HGB Conc 33.6 g/dL (30-55); Mean Corpuscular Hemoglobin 29.6 pg (27-33); Mean Corpuscular Volume 87.9 fl (82-101); Mean Platelet Volume 9.1 fL (7.4-10.4); Monocytes # 0.3 10^3/uL (0.2-0.9); Monocytes % 6.3 %; Neutrophils % 81.9 %; Nucleated Red Blood Cells % 0 %; Platelet Count 134 10^3/cmm (157-399); Red Blood Count 4.87 10^6/uL (3.85-5.65); White Blood Count 4.64 10^3/uL (3.29-11.43)
[2024-08-02 04:46] LABS: Lactic Sepsis W/Reflex 1.7 mmol/L (0.5-2.2)
[2024-08-02 04:47] LABS: Troponin(5th) Baseline 18 ng/L (0-15)
[2024-08-02 04:56] LABS: Alanine Aminotransferase 6 U/L (0-41); Albumin Level 3.7 g/dL (3.5-5.2); Alkaline Phosphatase 110 U/L (40-130); Anion Gap 15.7 (5-19); Aspartate Amino Transferase 10 U/L (0-40); Blood Urea Nitrogen 12 mg/dL (8-23); Calcium 8.9 mg/dL (8.5-10.5); Carbon Dioxide 22 mmol/L (22-29); Chloride 101 mmol/L (98-107); Creatinine Clr Calc Pharmacy 84.3507; Globulin 2.4 g/dL (1.3-4.6); Glucose 108 mg/dL (65-115); NT Pro B Type Natriuretic Pept 232 pg/mL (0-125); Osmolality Calculated 280 mOsm/kg (285-295); Potassium 3.7 mmol/L (3.5-5.1); Sodium 135 mmol/L (136-145); Total Bilirubin 0.4 mg/dL (0.15-1.2); Total Protein 6.1 g/dL (6.6-8.7)
--- NOTE | 2024-08-02 05:01 | CTR_ITS ---
PROCEDURE INFORMATION: Exam: CT Chest Without Contrast; Diagnostic Exam date and time: 08/02/2024 5:18 AM Age: 74 years old Clinical indication: Cough and fever; Prior surgery; Surgery date: <1 month; Surgery type: Pacemaker; Additional info: Abnormal chest xray TECHNIQUE: Imaging protocol: Diagnostic computed tomography of the chest without contrast. Radiation optimization: All CT scans at this facility use at least one of these dose optimization techniques: automated exposure control; mA and/or kV adjustment per patient size (includes targeted exams where dose is matched to clinical indication); or iterative reconstruction. COMPARISON: CR (CHEST, ) 08/02/2024 3:51 AM RADIATION DOSE METRICS: Total DLP (mGy-cm): 394.05 FINDINGS: Tubes, catheters and devices: Pacemaker. Lungs: Rather opacity abutting the pleura at the right lung base measures 2.5 cm in size. While it is likely atelectasis or infiltrate in should be followed by repeat CT in 3 months. Mild centrilobular emphysema. Calcified granuloma in the right upper lobe. Pleural spaces: Mild pleural and parenchymal fibrosis in the right apex. The mild opacity at the left lung base seen on routine radiographs is hypoventilatory. Heart: Unremarkable. No cardiomegaly. No pericardial effusion. Coronary arteries: Coronary artery calcifications. Lymph nodes: Calcified central lymph nodes. Vasculature: Unremarkable. No aortic aneurysm. Gallbladder and biliary ducts: Cholecystectomy. Bones/joints: Unremarkable. No acute fracture. Soft tissues: Unremarkable. CT/CT chest wo con [id number] IMPRESSION: Rounded opacity at the right lung base. Three-month follow-up chest CT recommended. COMMENTS: The presence of pulmonary emphysema on CT is an independent risk factor for lung cancer. In the absence of a history or active diagnosis of lung cancer, it is recommended that this patient with emphysema be evaluated for enrollment in a low dose CT lung cancer screening program.
[2024-08-02 05:03] LABS: Covid PCR NEGATIVE (Negative); Influenza A NEGATIVE (Negative); Influenza B NEGATIVE (Negative); Respiratory Syncytial Virus Ce POSITIVE (Negative)
--- NOTE | 2024-08-02 05:38 | ECG_ITS ---
FID3 Test Date: 2024-08-02 Pat Name: Moe Patel Department: Room: Gender: Male Regional Director Of Admissions: : 1950 Requested By: Ashia Brooks Order Number: [id number] Laird MD: Amos Balderas M.D. Measurements Intervals [place] Rate: 76 P: 96 FL: 155 QRS: 36 QRSD: 106 T: 56 QT: 365 QTc: 411 Interpretive Statements SINUS RHYTHM WITH OCCASIONAL VENTRICULAR PREMATURE COMPLEXES Compared to ECG 08/02/2024 03:33:22 Ventricular premature complex(es) now present Intraventricular conduction delay no longer present Electronically Signed On 08-03-2024 18:41:07 DIRECTOR OF STRATEGIC SALES by Amos Balderas M.D. [id number]
--- NOTE | 2024-08-02 05:49 | PC.NURSE ---
This nurse called [employer] to get patients pacemaker interrogated. A [employer] medication reconciliation technician will be contacting [facility] in regards to patient pacemaker.
[2024-08-02 06:40] LABS: Troponin 5 2HR 18.26 ng/L (0-15); Troponin 5 2HR Delta 0.26 ABS# (0-10)
[2024-08-02] MEDS: sodium chloride 0.9% 1,000 ML 999 ML IV (06:41)
[2024-08-02 06:52] LABS: Bilirubin Urine Negative (Negative); Blood Urine Negative (Negative); Glucose Urine UA Negative (Normal); Ketones Urine Negative (Negative); Leukocyte Esterase Urine Negative (Negative); Nitrate Urine Negative (Negative); Protein Urine Trace (Negative); Specific Gravity, Urine 1.026 (1.005-1.030); Urine Appearance Clear (CLEAR); Urine Color Dark Yellow (Yellow); pH Urine 5.5 (5-7)
[2024-08-02 07:15] LABS: UA Manual Slide Review YES
[2024-08-02 07:16] LABS: Bacteria Urine TRACE /hpf; RBC Urine 0-4 /hpf (0-2); Squamous Epithelial Cell Urine 0-4 /hpf (0-5); WBC Urine 0-4 /hpf (0-5)
[2024-08-02 07:18] LABS: Add Urine Culture? No; Mucus Urine 1+ /hpf
[2024-08-02] MEDS: acetaminophen 325 mg Tablet 650 MG PO (07:28)
--- NOTE | 2024-08-02 07:37 | PC.NURSE ---
provided pt with phone to call for ride home. ETA @[phone]
--- NOTE | 2024-08-02 07:57 | PC.PHAR ---
Patient sttaes [facility] That he just takes one daily . [facility] 8[facility]
== END 2024-08-02 08:35 | disposition home or self-care (01) ==
PROVIDERS: Emergency Medicine; Emergency Provider Emergency Medicine
DX: J21.0 Acute bronchiolitis due to respiratory syncytial virus (principal); R91.1 Solitary pulmonary nodule; Z11.52 Encounter for screening for COVID-19; Z79.02 Long term (current) use of antithrombotics/antiplatelets; I10 Essential (primary) hypertension; R78.5 Finding of other psychotropic drug in blood; I25.10 Atherosclerotic heart disease of native coronary artery without angina pectoris; Z95.0 Presence of cardiac pacemaker
CPT/HCPCS: 36415; 71045; 71250; 80053; 81001; 83605; 83880; 84484; 85025; 87040; 87637; 93005; 99285; J7030